=== PATIENT | male | born 1965 | race African-American/Black ===

== ENCOUNTER 2020-05-31 16:18 | Outpatient (REF) | payer BC, SELFPAY | END 2020-05-31 16:19 | disposition home or self-care (01) | LOC: HO.LNP 16:18 | PROVIDERS: Visit Provider Specialist | DX: H02.822 Cysts of right lower eyelid (principal) | CPT/HCPCS: 88304 ==

== ENCOUNTER 2020-07-17 16:36 | Outpatient (REF) | payer BC, SELFPAY | END 2020-07-17 16:37 | disposition home or self-care (01) | LOC: HO.LAB 16:36 | PROVIDERS: PCP Internal Medicine; Visit Provider Internal Medicine | DX: Z20.828 Contact with and (suspected) exposure to other viral communicable diseases (principal) | CPT/HCPCS: C9803; U0003 ==

== ENCOUNTER 2021-02-21 10:11 | Outpatient (REF) | payer BC, SELFPAY ==
[2021-02-21 10:18] LABS: MANUAL DIFF FLAG NO
[2021-02-21 10:44] LABS: Basophils Percent Auto 0.5 % (0-2); Eosinophils Absolute Auto 0.3 X10*3/uL (0.0-0.4); Eosinophils Percent Auto 4.1 % (0-4); Hematocrit 44.4 % (42-52); Hemoglobin 13.7 g/dl (14.0-18.0); Imm Gran Abs Auto 0.04 X10*3/uL (0.00-0.03); Imm Gran Pct Auto 0.6 % (0.0-0.4); Lymphocytes Absolute Auto 1.8 X10*3/uL (1.2-4.9); Lymphocytes Percent Auto 27.1 % (20-40); Mean Corpuscular HGB Conc 30.9 g/dl (31.0-36.0); Mean Corpuscular Volume 87.6 fL (80-98); Mean Platelet Volume 11.7 fL (9.4-12.4); Monocytes Absolute Auto 0.9 X10*3/uL (0.1-1.2); Monocytes Percent Auto 13.9 % (2-11); Neutrophils Absolute Auto 3.5 X10*3/uL (2.0-8.3); Neutrophils Percent Auto 53.8 % (45-73); Platelet Count 154 X10*3/uL (160-400); Red Blood Count 5.07 X10*6/uL (4.60-5.80); Red Cell Distribution Width 13.8 % (11.0-16.0); White Blood Count 6.5 X10*3/uL (4.8-10.8)
[2021-02-21 10:49] LABS: Glucose Urine UA NEG (NEG); Leukocyte Esterase Urine NEG (NEG); Nitrite Urine NEG (NEG); Urine Blood NEG (NEG); Urine Ketones NEG (NEG); Urine Protein NEG (NEG-TRACE)
[2021-02-21 10:53] LABS: Appearance Urine CLEAR; Color Urine YELLOW
[2021-02-21 11:00] LABS: Estimated Average Glucose 148 mg/dL; Hemoglobin A1c % 6.8 %
[2021-02-21 11:12] LABS: Creatinine Urine 200.61 mg/dL; Microalbum/Creatinine Ratio Ur 4.9 ug/mg cr
[2021-02-21 11:13] LABS: Alanine Aminotransferase 17 U/L (0-40); Albumin Level 3.7 g/dL (3.5-5.0); Alkaline Phosphatase 110 U/L (39-117); Anion Gap 9 (12-20); Aspartate Amino Transferase 16 U/L (5-37); Bilirubin Total 0.6 mg/dL (0.0-1.0); Blood Urea Nitrogen 13 mg/dL (9-16); Carbon Dioxide 30 mmol/L (22-29); Chloride 108 mmol/L (96-108); Cholesterol 218 mg/dL; Estimated Glomerular Filt Rate > 60; Glucose Fasting 163 mg/dL (60-99); HDL Cholesterol 44 mg/dL; LDL Cholesterol Calculated 152 mg/dl; Potassium 5.1 mmol/L (3.3-5.1); Sodium 142 mmol/L (135-145); Total Protein 6.4 g/dL (6.5-8.0); Triglycerides 114 mg/dL
[2021-02-21 11:31] LABS: PSA,Total (Free>4and<10) 1.05 ng/mL (0.00-4.00)
[2021-02-21 13:29] LABS: Reflex LDLD? No
== END 2021-02-21 10:12 | disposition home or self-care (01) ==
LOC: HO.LNP 10:11
PROVIDERS: Visit Provider Internal Medicine
DX: Z00.00 Encounter for general adult medical examination without abnormal findings (principal); E78.00 Pure hypercholesterolemia, unspecified; E11.9 Type 2 diabetes mellitus without complications
CPT/HCPCS: 80053; 80061; 81003; 82043; 83036; 84153; 85025

== ENCOUNTER 2021-04-23 15:40 | Emergency (ER) | payer OTHER, BC, SELFPAY ==
--- NOTE | ~2021-04-23 | MR_ITS ---
EXAMINATION: MR CERVICAL SPINE WITHOUT CONTRAST CLINICAL INFORMATION: Neck pain. Left arm weakness. COMPARISON: None available. TECHNIQUE: MRI of the cervical spine was obtained using routine sequences without contrast. FINDINGS: Mild reversal the normal cervical lordosis centered on C5-C6. Otherwise, normal anatomic alignment. Moderate degenerative disc disease from C4-C7. Associated mixed Modic type discogenic end plate changes including minimal Modic type I discogenic edema at C5-C6 and C6-C7. No additional suspicious marrow edema. Mild degenerative disc disease at all additional cervical levels. The vertebral body heights are largely maintained. No demonstrated spinal cord signal abnormalities. Limited evaluation of the soft tissues of the neck without demonstrated abnormalities. The flow voids of the major cervical vessels are maintained. Normal appearance of the cervicomedullary junction and visualized posterior fossa. SPINAL LEVELS: C2-C3: Normal annular contour. There is mild left and no right uncovertebral joint arthropathy. There is mild left and no right facet joint arthropathy. There is no neural foraminal stenosis. There is no spinal canal stenosis. C3-C4: Mild disc-osteophyte complex. There is moderate bilateral uncovertebral joint arthropathy. There is mild bilateral facet joint arthropathy. There is moderate right and mild left neural foraminal stenosis. There is mild indentation of the ventral cord with no spinal canal stenosis. C4-C5: Moderate disc-osteophyte complex with superimposed shallow central disc protrusion. There is mild bilateral uncovertebral joint arthropathy. There is moderate bilateral facet joint arthropathy. There is moderate left and mild right neural foraminal stenosis. There is indentation the ventral cord with no overt spinal canal stenosis. C5-C6: Moderate disc-osteophyte complex with superimposed small central disc protrusion. There is moderate bilateral uncovertebral joint arthropathy. There is mild bilateral facet joint arthropathy. There is moderate left and mild right neural foraminal stenosis. There is indentation of the ventral cord with mild spinal canal stenosis. C6-C7: Mild disc-osteophyte complex. There is mild bilateral uncovertebral joint arthropathy. There is mild bilateral facet joint arthropathy. There is no neural foraminal stenosis. There is no spinal canal stenosis. C7-T1: Mild disc-osteophyte complex with superimposed right foraminal disc extrusion. There is mild bilateral uncovertebral joint arthropathy. There is moderate bilateral facet joint arthropathy. There is severe right and moderate left neural foraminal stenosis. There is no spinal canal stenosis. MR/MR cervical spine wo con IMPRESSION: Moderate multilevel degenerative spondyloarthropathy of the cervical spine as described in detail above. Most notably, there is a right foraminal disc extrusion at C7-T1 that leads to severe right-sided neural foraminal stenosis at this level. There is also mild spinal canal stenosis at C5-C6. Moderate neural foraminal stenoses from C3-C6 and on the left at C7-T1.
[2021-04-23 15:43] VITALS: BP 143/65; PULSE 85; RESP 16; TEMP 36.4; O2SAT 98; BMI 36.9
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
[2021-04-23 17:40] VITALS: BP 121/67; PULSE 72; RESP 16; TEMP 35.8; O2SAT 98
--- NOTE | 2021-04-23 20:45 | PC.NURSE ---
MRI REPORT BACK. PROVIDER AWARE. WAITING FOR PROVIDER TO [facility]EEVAL PATIENT. PATIENT AWARE.
== END 2021-04-23 21:37 | disposition home or self-care (01) ==
PROVIDERS: Emergency Provider Emergency Medicine; PCP Internal Medicine
DX: M48.02 Spinal stenosis, cervical region (principal); M50.23 Other cervical disc displacement, cervicothoracic region
CPT/HCPCS: 72141; 99284; 99285

== ENCOUNTER 2021-09-06 10:16 | Outpatient (REF) | payer BC, SELFPAY ==
[2021-09-06 10:43] LABS: Estimated Average Glucose 212 mg/dL
[2021-09-06 11:20] LABS: Alanine Aminotransferase 41 U/L (0-40); Albumin Level 3.8 g/dL (3.5-5.0); Alkaline Phosphatase 99 U/L (39-117); Aspartate Amino Transferase 26 U/L (5-37); Bilirubin Direct 0.2 mg/dL (0.0-0.5); Bilirubin Total 0.5 mg/dL (0.0-1.0); Cholesterol 230 mg/dL; Glucose Fasting 211 mg/dL (60-99); HDL Cholesterol 43 mg/dL; LDL Cholesterol Calculated 155 mg/dl; Total Protein 6.8 g/dL (6.5-8.0); Triglycerides 161 mg/dL
[2021-09-06 11:53] LABS: Reflex LDLD? No
== END 2021-09-06 10:17 | disposition home or self-care (01) ==
LOC: HO.LNP 10:16
PROVIDERS: Visit Provider Internal Medicine
DX: E78.00 Pure hypercholesterolemia, unspecified (principal); E11.9 Type 2 diabetes mellitus without complications
CPT/HCPCS: 80061; 80076; 82947; 83036